=== PATIENT | female | born 1960 ===

== ENCOUNTER 2017-01-29 18:46 | Inpatient (IN) | payer SELFPAY ==
[2017-01-29] MEDS ORDERED: ZOFRAN IV ONE ×2 (19:15→21:02)
[2017-01-29] MEDS ORDERED: NITRO-BID 2% TP ONE (19:15)
[2017-01-29] MEDS ORDERED: MORPHINE IV ONE (19:15)
[2017-01-29] MEDS ORDERED: ASPIRIN PO ONE (19:16)
--- NOTE | 2017-01-29 19:18 | Admit Criteria Form ---
Admission Criteria Documentation: CHEST PAIN Clinical Indications for Admission to Inpatient Care (Place 'X' for any and all applicable criteria): Admission is indicated for chest pain and ANY ONE of the following(1)(2)(3)(4)(5 ): [ ]I. Angina with acute coronary syndrome (Also use Myocardial Infarction or Angina guideline) [ ]II. Hemodynamic instability [ ]III. Angina needing acute intervention as indicated by ALL of the following( 11)(12): [ ]a) Unstable angina is present as indicated by angina that is ANY ONE of the following: [ ]i) New onset [ ]ii) Nocturnal [ ]iii) Prolonged at rest [ ]iv) Progressive [ ]b) Angina warrants acute intervention as indicated by ANY ONE of the following: [ ]i) Recurrent angina (e.g, not responding as previously to treatment) [ ]ii) Angina at rest or with low-level activities despite initial medical therapy [ ]iii) New or presumably new ST-segment depression on ECG [ ]iv) Signs or symptoms of heart failure (eg, dyspnea, pulmonary edema) [ ]v) New or worsening mitral regurgitation [ ]vi) Hemodynamic instability [ ]vii) Dangerous arrhythmia (eg, sustained ventricular tachycardia) [ ]viii) History of percutaneous coronary intervention within 6 months [ ]ix) History of coronary artery bypass graft surgery [ ]x) RADHA risk score of 2 or greater[A] [ ]xi) History of Diabetes(14) [ ]xii) High-risk cardiac ischemia findings on noninvasive testing (e.g, echocardiogram, treadmill testing, nuclear scan) [ ]xiii) Chronic renal insufficiency (ie, estimated GFR less than 60 mL/min/1.732m) [ ]xiv) Left ventricular ejection fraction less than 40% [ ]IV. Evidence of ND (eg, cardiac biomarkers positive, ST-segment elevation on ECG) also use Myocardial Infarction Criteria Form. [ ]V. Pulmonary edema [ ]. Respiratory distress [ ]VII. Chest pain indicative of serious diagnosis other than coronary artery disease (eg, aortic dissection) [ ]VIII. Contraindications and/or Inappropriate clinical situations for Observational Care in patients with Chest Pain, when ANY ONE of the following is required: [ ]a) Patient with risk factor for pulmonary embolism, acute coronary syndrome and myocardial infarction (18) [ ]b) Patient with Pulmonary embolism require an average LOS of 4.3 days, therefore emergency department observation management is inappropriate 18,23 [ ]c) Painful condition/s in the elderly, have the highest rate of recidivism after emergency department observation management (10.8%) 20,21,22 [ ]d) Elevated cardiac biomarker requires intensive and exhaustive care (19) [X ]IX. General contraindications and/or Inappropriate clinical situations for Observational Care in patients with Chest Pain, when ANY ONE of the following is required: [X ]a) Prediction of prolongation of LOS based on ANY ONE of the following may be considered as a contraindication for observational care 2, 3, 4, 5, 6, 7, 8, 9, 10, 11 [ ]i) Age > 65 yrs. [X ]ii) Patient arriving by ambulance [ ]iii) Patient with high acuity [ ]iv) Patient requiring vital sign monitoring [ ]v) Patient on IV medication [ ]b) Systolic blood pressures 180mmHg 3,12 [ ]c) Patient with altered mental status including delirium and other alteration of consciousness, (3) [ ]d) Patient whose discharge disposition will be to a usp home or rehabilitation home should not be managed in Emergency Department Observation Unit. CMS rule requires 3 days hospital stay before such placement. 3,13 [ ]e) Patient with failure to thrive due to broad array of etiologies 3,16,17 [ ]f) Inability to ambulate 3,14 Extended stay beyond goal length of stay may be needed for (1)(28): [ ]a) Specific condition diagnosed after evaluation (eg, pulmonary embolism, aortic dissection) [ ]b) Unstable angina [ ]c) Continued suspicion of acute coronary syndrome with inability to complete needed cardiac evaluation (eg, patient clinically unable to undergo stress testing) [ ]d) Myocardial infarction (Contents from ANGINA and CHEST PAIN clinical indications for admission to inpatient care have been integrated in this form) The original [facility] content created by [employer] has been revised. The portions of the content which have been revised are identified through the use of italic text or in bold, and [facility] [employer] has neither reviewed nor approved the modified material. All other unmodified content is copyright [facility]. Please see references footnoted in the original [facility] [employer] edition 2016 Admission Criteria Met: Yes
--- NOTE | 2017-01-29 19:20 | Emergency Department Report ---
HPI - General Chief Complaint: Chest Pain Time Seen by Provider: 01/29/17 19:05 - [facility] HPI: Room 4 The patient is a 56-year-old female presenting with a chief complaint of chest pain. Family states patient developed substernal left-sided chest pain at approximately 18:10. Patient describes the pain as feeling as though someone is sitting on her chest. Family states patient lost consciousness for a few seconds. Patient was diaphoretic complained of shortness of breath and did vomit. The patient currently gives her pain a score of 6-7/10. The patient states she's never had a stress test or cardiac catheterization Location: Chest Duration: Constant Since 18:10 Quality: Pressure Severity:6-7/10 Modifying factors: [see above] Context: [see above] Mode of transportation: [not driving] ED Past Medical Hx - Past Medical History Hx Hypertension: Yes Hx Diabetes: Yes - Surgical History Hx Cholecystectomy: Yes - Family History Family history: no significant - Social History Smoking Status: Never Smoker Substance Use Type: None ED Review of Systems ROS: Stated complaint: CHEST PAIN Other details as noted in HPI Comment: All other systems reviewed and negative Constitutional: diaphoresis. denies: chills, fever Eyes: denies: eye pain, eye discharge, vision change ENT: denies: ear pain, throat pain Respiratory: shortness of breath Cardiovascular: chest pain Endocrine: no symptoms reported Gastrointestinal: nausea, vomiting Genitourinary: denies: urgency, dysuria, discharge Musculoskeletal: denies: back pain, joint swelling, arthralgia Skin: denies: rash, lesions Neurological: paresthesias, other (syncope) Psychiatric: denies: anxiety, depression Hematological/Lymphatic: denies: easy bleeding, easy bruising Physical Exam - Physical Exam Physical Exam: GENERAL: The patient is well-developed well-nourished female lying on stretcher not appearing to be in acute distress. [] HEENT: Normocephalic. Atraumatic. Extraocular motions are intact. Patient has moist mucous membranes. NECK: Supple. Trachea midline CHEST/LUNGS: Clear to auscultation. There is no respiratory distress noted. HEART/CARDIOVASCULAR: Regular. There is no tachycardia. There is no gallop rub or murmur. ABDOMEN: Abdomen is soft, nontender. Patient has normal bowel sounds. There is no abdominal distention. SKIN: There is no rash. There is no edema. There is no diaphoresis. NEURO: The patient is awake, alert, and oriented. The patient is cooperative. The patient has no focal neurologic deficits. The patient has normal speech. Cranial nerves II through XII grossly intact, no drift MUSCULOSKELETAL: There is no evidence of acute injury. ED Medical Decision Making - Lab Data Result diagrams: 01/29/17 19:33 01/29/17 19:41 Laboratory Tests 01/29/17 01/29/17 01/29/17 19:33 19:39 19:40 WBC 7.2 RBC 4.01 Hgb 11.4 Hct 34.2 MCV 85 MCH 28 MCHC 33 RDW 13.8 Plt Count 189 Lymph % (Auto) 45.2 H Rankin % (Auto) 4.9 Eos % (Auto) 2.0 Baso % (Auto) 0.6 Lymph # 3.2 Rankin # 0.4 Eos # 0.1 Baso # 0.0 Seg Neutrophils % 47.3 Seg Neutrophils # 3.4 PT 11.6 L INR 0.86 L APTT 23.1 L D-Dimer 241.45 H Sodium Potassium Chloride Carbon Dioxide Anion Gap BUN Creatinine Estimated GFR BUN/Creatinine Ratio Glucose Calcium Total Creatine Kinase 104 CK-MB (CK-2) 1.9 CK-MB (CK-2) Rel Index 1.8 Troponin T 01/29/17 19:41 WBC RBC Hgb Hct MCV MCH MCHC RDW Plt Count Lymph % (Auto) Rankin % (Auto) Eos % (Auto) Baso % (Auto) Lymph # Rankin # Eos # Baso # Seg Neutrophils % Seg Neutrophils # PT INR APTT D-Dimer Sodium 136 L Potassium 4.2 Chloride 102.3 Carbon Dioxide 21 L Anion Gap 17 BUN 26 H Creatinine 0.7 Estimated GFR > 60 BUN/Creatinine Ratio 37.14 Glucose 187 H Calcium 9.3 Total Creatine Kinase CK-MB (CK-2) CK-MB (CK-2) Rel Index Troponin T < 0.010 - EKG Data -: EKG Interpreted by Me EKG shows normal: sinus rhythm Rate: normal - EKG Data When compared to previous EKG there are: previous EKG unavailable Interpretation: other (no ischemic changes seen) - Radiology Data Radiology results: image reviewed (chest x-ray) interpreted by me: Chest x-ray-no focal infiltrates, no pneumothorax - Differential Diagnosis ACS, GERD, pericarditis, PE, pneumothorax Critical care attestation.: If time is entered above; I have spent that time in minutes in the direct care of this critically ill patient, excluding procedure time. ED Disposition Clinical Impression: Chest pain Disposition: OP ADMITTED IP TO THIS HOSP Is pt being admited?: Yes Does the pt Need Aspirin: Yes Condition: Fair Instructions: Chest Pain (ED) Time of Disposition: 20:39 (hospitalist paged)
[2017-01-29 19:48] LABS: Basophils % (Auto) 0.6 % (0.0-1.8); Hematocrit 34.2 % (30.3-42.9); Hemoglobin 11.4 gm/dl (10.1-14.3); Mean Corpuscular HGB Conc 33 % (30-34); Mean Corpuscular Hemoglobin 28 pg (28-32); Mean Corpuscular Volume 85 fl (79-97); Platelet Count 189 K/mm3 (140-440); Red Blood Count 4.01 M/mm3 (3.65-5.03); Red Cell Distribution Width 13.8 % (13.2-15.2); White Blood Count 7.2 K/mm3 (4.5-11.0)
[2017-01-29 19:58] LABS: INR 0.86 (0.87-1.13)
[2017-01-29 19:59] LABS: Partial Thromboplastin Time 23.1 Sec. (24.2-36.6)
[2017-01-29 20:10] LABS: Anion Gap 17 mmol/L; BUN/Creatinine Ratio 37.14; Blood Urea Nitrogen 26 mg/dL (7-17); Calcium 9.3 mg/dL (8.4-10.2); Carbon Dioxide 21 mmol/L (22-30); Chloride 102.3 mmol/L (98-107); Glucose 187 mg/dL (65-100); Potassium 4.2 mmol/L (3.6-5.0); Sodium 136 mmol/L (137-145)
[2017-01-29 20:12] LABS: Creatine Kinase MB 1.9 ng/mL (0.0-4.0)
[2017-01-29] MEDS ORDERED: TYLENOL PO PRN (21:09)
[2017-01-29] MEDS ORDERED: DULCOLAX PR PRN (21:09)
[2017-01-29] MEDS ORDERED: MILK OF MAGNESIA PO PRN (21:09)
[2017-01-29] MEDS ORDERED: MORPHINE IV PRN (21:09)
[2017-01-29] MEDS ORDERED: D50W (25GM) IV PRN (21:09)
[2017-01-29] MEDS ORDERED: SODIUM CHLORIDE FLUSH SYRINGE 10 ML IV PRN (21:09)
--- NOTE | 2017-01-29 21:18 | History and Physical Report ---
History of Present Illness Date of examination: 01/29/17 History of present illness: 56-year-old woman with a history of hypertension, diabetes comes emergency room with complaints of chest pain across the chest. Symptoms started today, he felt as if someone was sitting on her chest, constant, intensity 8/10, no radiation, she cannot identify exacerbating or relieving factors. She admits to nausea vomiting, shortness breath, diaphoresis and palpitation. Family stated that she had a syncopal episode, unclear how long Patient denies cough, abdominal pain, hematochezia, dysuria, frequency, focal weakness, dysarthria, fever chills, polydipsia polyuria, hot or cold intolerance , easy bruisability, or rash or bleeding from mucosal membrane, rhinorrhea, epistaxis, earache, tinnitus, blurry vision, eye discharge, anxiety, depression. Other review of systems negative PAST SURGICAL HISTORY: Cholecystectomy SOCIAL HISTORY: Denies alcohol, tobacco, drugs FAMILY HISTORY: Hypertension Medications and Allergies Allergies Allergy/AdvReac Type Severity Reaction Status Date / Time No Known Allergies Allergy Verified 01/29/17 21:24 Home Medications Medication Instructions Recorded Confirmed Last Taken Type Aspirin [Aspirin TAB] 325 mg PO QDAY 01/30/17 01/30/17 Unknown History Linagliptin [Tradjenta] 5 mg PO DAILY 01/30/17 01/30/17 Unknown History Lisinopril/Hydrochlorothiazide 1 tab PO QDAY 01/30/17 01/30/17 Unknown History [Zestoretic 20-25 mg] Metformin HCl [Glucophage] 1,000 mg PO BID 01/30/17 01/30/17 Unknown History Active Meds: Active Medications Acetaminophen (Tylenol) 650 mg PO Q4H PRN PRN Reason: Pain MILD(1-3)/Fever >100.5/OJEDA Aspirin (Baby Aspirin) 81 mg PO QDAY BRODIE Bisacodyl (Dulcolax) 10 mg IN QDAY PRN PRN Reason: Constipation unrelieved by MOM Dextrose (D50w (25gm)) 50 ml IV PRN PRN PRN Reason: Hypoglycemia Enoxaparin Sodium (Lovenox) 30 mg SUB-Q QDAY [facility] Sodium Chloride (Nacl 0.45% 1000 Ml) 1,000 mls @ 75 mls/hr IV DIRECT BRODIE Insulin Aspart (Novolog) 0 units SUB-Q ACHS BRODIE PRN Reason: Protocol Magnesium Hydroxide (Milk Of Magnesia) 30 ml PO Q4H PRN PRN Reason: Constipation Morphine Sulfate (Morphine) 2 mg IV Q4H PRN PRN Reason: Pain, Moderate (4-6) Ondansetron HCl (Zofran) 4 mg IV Q4H PRN PRN Reason: N/V unrelieved by Reglan Sodium Chloride (Sodium Chloride Flush Syringe 10 Ml) 10 ml IV PRN PRN PRN Reason: LINE FLUSH Exam - Physical Exam Narrative exam: Gen. appearance: Patient lying in bed, no apparent distress HEENT: Normocephalic, atraumatic, pupils equally round and reactive to light, extraocular movement intact, and no sclericterus,. No JVD or thyromegaly or nodule,neck supple, no carotid bruit ,mucous membranes moist, no exudate or erythema Heart: S1, S2, regular rate and rhythm Lungs: Clear to auscultation bilaterally, breathing comfortable Abdomen: Positive bowel sounds, nontender, nondistended, no organomegaly Extremity: No edema, cyanosis, clubbing Skin: No rash, nodules, warm, dry Neuro: Oriented 3, cranial nerves II-12 intact, speech is fluent, motor and sensory intact Results - Labs CBC & Chem 7: 01/30/17 03:09 02/01/17 04:50 Labs: Abnormal lab results 01/29/17 01/29/17 01/29/17 Range/Units 19:33 19:40 19:41 Lymph % (Auto) 45.2 H (13.4-35.0) % PT 11.6 L (12.2-14.9) Sec. INR 0.86 L (0.87-1.13) APTT 23.1 L (24.2-36.6) Sec. D-Dimer 241.45 H (0-234) ng/mlDDU Sodium 136 L (137-145) mmol/L Carbon Dioxide 21 L (22-30) mmol/L BUN 26 H (7-17) mg/dL Glucose 187 H (65-100) mg/dL - Imaging and Cardiology EKG: image reviewed Chest x-ray: image reviewed Assessment and Plan Chest pain and abnormal EKG, rule out ACS Hypertension Diabetes type 2 Admit to medicine Check cardiac enzymes, lipid profile, obtain stress test Check CT chest Start aspirin, IV morphine, DVT prophylaxis Check fingersticks and initiate insulin sliding scale
[2017-01-29] MEDS ORDERED: NACL ONE (21:51)
[2017-01-29] MEDS ORDERED: ZOFRAN ONE (23:24)
[2017-01-29] MEDS ORDERED: NOVOLOG SUB-Q ONE (23:28)
[2017-01-29] MEDS: NOVOLOG SUB-Q SCH (23:34)
[2017-01-29] MEDS: ZOFRAN IV PRN (23:39)
--- NOTE | 2017-01-30 00:38 | Cat Scan Report ---
FINAL REPORT EXAM: CT ANGIO CHEST HISTORY: chest pain sob TECHNIQUE: Serial axial images through the chest during intravenous administration of 100 milliliters Omnipaque 350 contrast with coronal, sagittal and oblique reconstruction PRIORS: None. FINDINGS: There is atelectasis in the lung bases. No pleural effusion is seen. Multiple pneumatoceles are seen bilaterally. There is fluid in the distal esophagus. The heart measures approximately 12 centimeters in length. No mediastinal adenopathy is identified. No abnormal filling defects are identified in the pulmonary arteries. There is fatty infiltration of the liver. No acute osseous abnormality is identified. IMPRESSION: 1. No definite acute pulmonary embolism is identified. 2. There is fluid in the lumen of the distal esophagus which may indicate reflux. 3. Multiple pneumatoceles are noted. 4. There is atelectasis in the dependent portion of the lungs, bilaterally. Possibility of superimposed infection is not excluded.
[2017-01-30] MEDS: NACL 0.45% 1000 ML 1,000 ML IV SCH ×2 (00:47→23:05)
[2017-01-30 01:08] LABS: Creatine Kinase MB 1.6 ng/mL (0.0-4.0)
[2017-01-30 03:22] LABS: Basophils % (Auto) 0.3 % (0.0-1.8); Eosinophils % (Auto) 0.1 % (0.0-4.3); Hematocrit 31.9 % (30.3-42.9); Hemoglobin 10.5 gm/dl (10.1-14.3); Mean Corpuscular HGB Conc 33 % (30-34); Mean Corpuscular Hemoglobin 28 pg (28-32); Mean Corpuscular Volume 85 fl (79-97); Platelet Count 182 K/mm3 (140-440); Red Blood Count 3.75 M/mm3 (3.65-5.03); Red Cell Distribution Width 13.7 % (13.2-15.2); White Blood Count 9.3 K/mm3 (4.5-11.0)
[2017-01-30 03:41] LABS: Anion Gap 17 mmol/L; BUN/Creatinine Ratio 35.71; Blood Urea Nitrogen 25 mg/dL (7-17); Calcium 9.1 mg/dL (8.4-10.2); Carbon Dioxide 21 mmol/L (22-30); Glucose 235 mg/dL (65-100); Potassium 4.9 mmol/L (3.6-5.0); Sodium 132 mmol/L (137-145)
[2017-01-30] MEDS: ZOFRAN IV PRN ×2 (04:23→17:43)
[2017-01-30 06:30] LABS: Creatine Kinase MB 1.3 ng/mL (0.0-4.0)
[2017-01-30] MEDS: NOVOLOG SUB-Q SCH ×4 (08:33→23:04)
[2017-01-30] MEDS: BABY ASPIRIN PO SCH (09:28)
[2017-01-30] MEDS: LOVENOX SUB-Q SCH (09:57)
[2017-01-30] MEDS ORDERED: LOVENOX SUB-Q SCH (10:00)
--- NOTE | 2017-01-30 21:31 | Progress Note ---
History Interval history: c/o nausea and vomiting refused stress test this morning Hospitalist Physical - Constitutional Vitals: Temp Pulse Resp BP Pulse Ox 97.6 F 86 20 118/56 99 01/30/17 21:00 01/30/17 21:00 01/30/17 21:00 01/30/17 21:00 01/30/17 21:00 Results - Labs CBC & Chem 7: 01/30/17 03:09 01/30/17 03:09 Labs: Laboratory Last Values WBC 9.3 K/mm3 (4.5-11.0) 01/30/17 03:09 RBC 3.75 M/mm3 (3.65-5.03) 01/30/17 03:09 Hgb 10.5 gm/dl (10.1-14.3) 01/30/17 03:09 Hct 31.9 % (30.3-42.9) 01/30/17 03:09 MCV 85 fl (79-97) 01/30/17 03:09 MCH 28 pg (28-32) 01/30/17 03:09 MCHC 33 % (30-34) 01/30/17 03:09 RDW 13.7 % (13.2-15.2) 01/30/17 03:09 Plt Count 182 K/mm3 (140-440) 01/30/17 03:09 Lymph % (Auto) 22.9 % (13.4-35.0) 01/30/17 03:09 [place] % (Auto) 3.0 % (0.0-7.3) 01/30/17 03:09 Eos % (Auto) 0.1 % (0.0-4.3) 01/30/17 03:09 Baso % (Auto) 0.3 % (0.0-1.8) 01/30/17 03:09 Lymph # 2.1 K/mm3 (1.2-5.4) 01/30/17 03:09 [place] # 0.3 K/mm3 (0.0-0.8) 01/30/17 03:09 Eos # 0.0 K/mm3 (0.0-0.4) 01/30/17 03:09 Baso # 0.0 K/mm3 (0.0-0.1) 01/30/17 03:09 Seg Neutrophils % 73.7 % (40.0-70.0) H 01/30/17 03:09 Seg Neutrophils # 6.9 K/mm3 (1.8-7.7) 01/30/17 03:09 PT 11.6 Sec. (12.2-14.9) L 01/29/17 19:40 INR 0.86 (0.87-1.13) L 01/29/17 19:40 APTT 23.1 Sec. (24.2-36.6) L 01/29/17 19:40 D-Dimer 241.45 ng/mlDDU (0-234) H 01/29/17 19:40 Sodium 132 mmol/L (137-145) L 01/30/17 03:09 Potassium 4.9 mmol/L (3.6-5.0) 01/30/17 03:09 Chloride 99.0 mmol/L (98-107) 01/30/17 03:09 Carbon Dioxide 21 mmol/L (22-30) L 01/30/17 03:09 Anion Gap 17 mmol/L 01/30/17 03:09 BUN 25 mg/dL (7-17) H 01/30/17 03:09 Creatinine 0.7 mg/dL (0.7-1.2) 01/30/17 03:09 Estimated GFR > 60 ml/min 01/30/17 03:09 BUN/Creatinine Ratio 35.71 % 01/30/17 03:09 Glucose 235 mg/dL (65-100) H 01/30/17 03:09 POC Glucose 191 (70-105) H 01/30/17 15:53 Calcium 9.1 mg/dL (8.4-10.2) 01/30/17 03:09 Total Creatine Kinase 69 units/L (30-135) 01/30/17 04:57 CK-MB (CK-2) 1.3 ng/mL (0.0-4.0) 01/30/17 04:57 CK-MB (CK-2) Rel Index 1.8 (0-4) 01/30/17 04:57 Troponin T < 0.010 ng/mL (0.00-0.029) 01/30/17 08:49 Triglycerides 289 mg/dL (2-149) H 01/29/17 19:39 Cholesterol 254 mg/dL (50-199) H 01/29/17 19:39 LDL Cholesterol Direct 146 mg/dL (50-130) H 01/29/17 19:39 HDL Cholesterol 51 mg/dL (40-59) 01/29/17 19:39 Cholesterol/HDL Ratio 4.98 % 01/29/17 19:39
[2017-01-31] MEDS: ZOFRAN IV PRN (05:40)
[2017-01-31 06:02] LABS: Chloride 100.5 mmol/L (98-107); Potassium 3.9 mmol/L (3.6-5.0)
[2017-01-31 06:08] LABS: Bacteria,Urine 1+ /HPF (Negative); Bilirubin,Urine NEG (Negative); Blood,Urine SM (Negative); Ketones,Urine NEG (Negative); Leukocyte Esterase,Urine MOD (Negative); Mucus,Urine FEW /HPF; Nitrite,Urine NEG (Negative); Urobilinogen,Urine < 2.0 mg/dL (<2.0)
[2017-01-31] MEDS ORDERED: NACL 0.9% 1000 ML 1,000 ML IV ONE (10:00)
[2017-01-31] MEDS: NOVOLOG SUB-Q SCH ×4 (10:09→22:49)
[2017-01-31] MEDS: LOVENOX SUB-Q SCH (10:09)
[2017-01-31] MEDS: BABY ASPIRIN PO SCH (10:10)
--- NOTE | 2017-01-31 19:09 | Progress Note ---
Assessment and Plan Assessment and plan: 1. Gastroparesis with nausea/vomiting 2. Dehydration 3. Acute kidney injury 4. Uncontrolled DM History Interval history: continues to be nauseated and to throw up; family not present to translate Hospitalist Physical - Constitutional Vitals: Temp Pulse Resp BP Pulse Ox 97.2 F L 82 18 184/89 99 01/31/17 17:20 01/31/17 17:20 01/31/17 17:20 01/31/17 17:20 01/31/17 17:20 General appearance: Present: mild distress, well-nourished - EENT Eyes: Present: PERRL, EOM intact. Absent: scleral icterus, conjunctival injection - Neck Neck: Present: supple, normal ROM. Absent: masses or JVD - Respiratory Respiratory effort: normal Respiratory: bilateral: CTA, negative: rales, rhonchi, wheezing - Cardiovascular Rhythm: regular Heart Sounds: Present: S1 & S2. Absent: systolic murmur - Extremities Extremities: no ischemia - Abdominal General gastrointestinal: soft, tender, non-distended, normal bowel sounds Localized gastrointestinal: tender: epigastric periumbilical - Integumentary Integumentary: Present: warm, dry. Absent: jaundice, rash - Neurologic Neurologic: no focal deficits Results - Labs CBC & Chem 7: 01/30/17 03:09 01/31/17 04:38 Labs: Laboratory Last Values WBC 9.3 K/mm3 (4.5-11.0) 01/30/17 03:09 RBC 3.75 M/mm3 (3.65-5.03) 01/30/17 03:09 Hgb 10.5 gm/dl (10.1-14.3) 01/30/17 03:09 Hct 31.9 % (30.3-42.9) 01/30/17 03:09 MCV 85 fl (79-97) 01/30/17 03:09 MCH 28 pg (28-32) 01/30/17 03:09 MCHC 33 % (30-34) 01/30/17 03:09 RDW 13.7 % (13.2-15.2) 01/30/17 03:09 Plt Count 182 K/mm3 (140-440) 01/30/17 03:09 Lymph % (Auto) 22.9 % (13.4-35.0) 01/30/17 03:09 [place] % (Auto) 3.0 % (0.0-7.3) 01/30/17 03:09 Eos % (Auto) 0.1 % (0.0-4.3) 01/30/17 03:09 Baso % (Auto) 0.3 % (0.0-1.8) 01/30/17 03:09 Lymph # 2.1 K/mm3 (1.2-5.4) 01/30/17 03:09 [place] # 0.3 K/mm3 (0.0-0.8) 01/30/17 03:09 Eos # 0.0 K/mm3 (0.0-0.4) 01/30/17 03:09 Baso # 0.0 K/mm3 (0.0-0.1) 01/30/17 03:09 Seg Neutrophils % 73.7 % (40.0-70.0) H 01/30/17 03:09 Seg Neutrophils # 6.9 K/mm3 (1.8-7.7) 01/30/17 03:09 PT 11.6 Sec. (12.2-14.9) L 01/29/17 19:40 INR 0.86 (0.87-1.13) L 01/29/17 19:40 APTT 23.1 Sec. (24.2-36.6) L 01/29/17 19:40 D-Dimer 241.45 ng/mlDDU (0-234) H 01/29/17 19:40 Sodium 140 mmol/L (137-145) D 01/31/17 04:38 Potassium 3.9 mmol/L (3.6-5.0) D 01/31/17 04:38 Chloride 99.0 mmol/L (98-107) 01/30/17 03:09 Carbon Dioxide 24 mmol/L (22-30) 01/31/17 04:38 Anion Gap 17 mmol/L 01/30/17 03:09 BUN 29 mg/dL (7-17) H 01/31/17 04:38 Creatinine 1.0 mg/dL (0.7-1.2) 01/31/17 04:38 Estimated GFR 58 ml/min 01/31/17 04:38 BUN/Creatinine Ratio 29.00 % 01/31/17 04:38 Glucose 127 mg/dL (65-100) H 01/31/17 04:38 POC Glucose 155 (70-105) H 01/31/17 11:41 Calcium 9.0 mg/dL (8.4-10.2) 01/31/17 04:38 Total Creatine Kinase 69 units/L (30-135) 01/30/17 04:57 CK-MB (CK-2) 1.3 ng/mL (0.0-4.0) 01/30/17 04:57 CK-MB (CK-2) Rel Index 1.8 (0-4) 01/30/17 04:57 Troponin T < 0.010 ng/mL (0.00-0.029) 01/30/17 08:49 Triglycerides 289 mg/dL (2-149) H 01/29/17 19:39 Cholesterol 254 mg/dL (50-199) H 01/29/17 19:39 LDL Cholesterol Direct 146 mg/dL (50-130) H 01/29/17 19:39 HDL Cholesterol 51 mg/dL (40-59) 01/29/17 19:39 Cholesterol/HDL Ratio 4.98 % 01/29/17 19:39 Urine Color Yellow (Yellow) 01/31/17 05:45 Urine Turbidity Clear (Clear) 01/31/17 05:45 Urine pH 5.0 (5.0-7.0) 01/31/17 05:45 Ur Specific [place] 1.015 (1.003-1.030) 01/31/17 05:45 Urine Protein 100 mg/dl mg/dL (Negative) 01/31/17 05:45 Urine Glucose (UA) >=500 mg/dL (Negative) 01/31/17 05:45 Urine Ketones Neg mg/dL (Negative) 01/31/17 05:45 Urine Blood Sm (Negative) 01/31/17 05:45 Urine Nitrite Neg (Negative) 01/31/17 05:45 Urine Bilirubin Neg (Negative) 01/31/17 05:45 Urine Urobilinogen < 2.0 mg/dL (<2.0) 01/31/17 05:45 Ur Leukocyte Esterase Mod (Negative) 01/31/17 05:45 Urine WBC (Auto) 10.0 /HPF (0.0-6.0) H 01/31/17 05:45 Urine RBC (Auto) 2.0 /HPF (0.0-6.0) 01/31/17 05:45 U Epithel Cells (Auto) 3.0 /HPF (0-13.0) 01/31/17 05:45 Urine Bacteria (Auto) 1+ /HPF (Negative) 01/31/17 05:45 Hyaline Casts 2 /LPF 01/31/17 05:45 Urine Mucus Few /HPF 01/31/17 05:45
[2017-02-01 06:44] LABS: Anion Gap 19 mmol/L; Blood Urea Nitrogen 7 mg/dL (7-17); Calcium 8.5 mg/dL (8.4-10.2); Carbon Dioxide 18 mmol/L (22-30); Chloride 94.7 mmol/L (98-107); Glucose 154 mg/dL (65-100); Potassium 3.9 mmol/L (3.6-5.0); Sodium 128 mmol/L (137-145)
[2017-02-01] MEDS: NOVOLOG SUB-Q SCH ×4 (09:15→22:25)
[2017-02-01] MEDS: BABY ASPIRIN PO SCH (09:15)
[2017-02-01] MEDS: LOVENOX SUB-Q SCH (09:15)
--- NOTE | 2017-02-01 19:42 | Progress Note ---
Assessment and Plan Assessment and plan: 1. Gastroparesis with nausea/vomiting On ivf and antiemetics Improving clinically, started on clear liquid diet; plan to advance it if tolerated 2. Dehydration Resolved with IV fluids 3. Acute kidney injury Resolved with IV fluids 5. Hyponatremia Likely delusional Monitor 4. Uncontrolled DM Hemoglobin A1c 11.9 Home only on oral antidiabetics Discussed with patient and family need of insulin therapy; they agreed; will start insulin 70/30 along with Accu-Cheks and SSI; assessing insulin requirements; 5. Hypertension BP elevated Now that she is tolerating by mouth, will resume lisinopril and HCTZ Monitor BP and adjust regimen as needed 6. DVT prophylaxis Lovenox 7. Discharge planning issues Nurse asked to teach patient how to self administer subcutaneous insulin Case management are contacted for PCP referral History Interval history: started on clear liquid diet; still nauseated, but feeling better family member present, translating Hospitalist Physical - Constitutional Vitals: Temp Pulse Resp BP Pulse Ox 98.3 F 83 20 164/79 96 02/01/17 16:00 02/01/17 16:00 02/01/17 16:00 02/01/17 16:00 02/01/17 16:00 General appearance: Present: no acute distress, well-nourished - EENT Eyes: Present: PERRL, EOM intact. Absent: scleral icterus, conjunctival injection - Neck Neck: Present: supple, normal ROM. Absent: masses or JVD - Respiratory Respiratory effort: normal Respiratory: bilateral: CTA, negative: rales, rhonchi, wheezing - Cardiovascular Rhythm: regular Heart Sounds: Present: S1 & S2. Absent: systolic murmur - Extremities Extremities: no ischemia - Abdominal General gastrointestinal: soft, tender, non-distended, normal bowel sounds Localized gastrointestinal: tender: epigastric periumbilical - Integumentary Integumentary: Present: warm, dry. Absent: jaundice, rash - Psychiatric Psychiatric: cooperative - Neurologic Neurologic: CNII-XII intact, no focal deficits Results - Labs CBC & Chem 7: 01/30/17 03:09 02/01/17 04:50 Labs: Laboratory Last Values WBC 9.3 K/mm3 (4.5-11.0) 01/30/17 03:09 RBC 3.75 M/mm3 (3.65-5.03) 01/30/17 03:09 Hgb 10.5 gm/dl (10.1-14.3) 01/30/17 03:09 Hct 31.9 % (30.3-42.9) 01/30/17 03:09 MCV 85 fl (79-97) 01/30/17 03:09 MCH 28 pg (28-32) 01/30/17 03:09 MCHC 33 % (30-34) 01/30/17 03:09 RDW 13.7 % (13.2-15.2) 01/30/17 03:09 Plt Count 182 K/mm3 (140-440) 01/30/17 03:09 Lymph % (Auto) 22.9 % (13.4-35.0) 01/30/17 03:09 [place] % (Auto) 3.0 % (0.0-7.3) 01/30/17 03:09 Eos % (Auto) 0.1 % (0.0-4.3) 01/30/17 03:09 Baso % (Auto) 0.3 % (0.0-1.8) 01/30/17 03:09 Lymph # 2.1 K/mm3 (1.2-5.4) 01/30/17 03:09 [place] # 0.3 K/mm3 (0.0-0.8) 01/30/17 03:09 Eos # 0.0 K/mm3 (0.0-0.4) 01/30/17 03:09 Baso # 0.0 K/mm3 (0.0-0.1) 01/30/17 03:09 Seg Neutrophils % 73.7 % (40.0-70.0) H 01/30/17 03:09 Seg Neutrophils # 6.9 K/mm3 (1.8-7.7) 01/30/17 03:09 PT 11.6 Sec. (12.2-14.9) L 01/29/17 19:40 INR 0.86 (0.87-1.13) L 01/29/17 19:40 APTT 23.1 Sec. (24.2-36.6) L 01/29/17 19:40 D-Dimer 241.45 ng/mlDDU (0-234) H 01/29/17 19:40 Sodium 128 mmol/L (137-145) L D 02/01/17 04:50 Potassium 3.9 mmol/L (3.6-5.0) 02/01/17 04:50 Chloride 94.7 mmol/L (98-107) L 02/01/17 04:50 Carbon Dioxide 18 mmol/L (22-30) L 02/01/17 04:50 Anion Gap 19 mmol/L 02/01/17 04:50 BUN 7 mg/dL (7-17) 02/01/17 04:50 Creatinine 0.2 mg/dL (0.7-1.2) L D 02/01/17 04:50 Estimated GFR > 60 ml/min 02/01/17 04:50 BUN/Creatinine Ratio 35.00 % 02/01/17 04:50 Glucose 154 mg/dL (65-100) H 02/01/17 04:50 POC Glucose 159 (70-105) H 02/01/17 12:18 Hemoglobin A1c 11.9 % (4-6) H 02/01/17 04:50 Calcium 8.5 mg/dL (8.4-10.2) 02/01/17 04:50 Total Creatine Kinase 69 units/L (30-135) 01/30/17 04:57 CK-MB (CK-2) 1.3 ng/mL (0.0-4.0) 01/30/17 04:57 CK-MB (CK-2) Rel Index 1.8 (0-4) 01/30/17 04:57 Troponin T < 0.010 ng/mL (0.00-0.029) 01/30/17 08:49 Triglycerides 289 mg/dL (2-149) H 01/29/17 19:39 Cholesterol 254 mg/dL (50-199) H 01/29/17 19:39 LDL Cholesterol Direct 146 mg/dL (50-130) H 01/29/17 19:39 HDL Cholesterol 51 mg/dL (40-59) 01/29/17 19:39 Cholesterol/HDL Ratio 4.98 % 01/29/17 19:39 Urine Color Yellow (Yellow) 01/31/17 05:45 Urine Turbidity Clear (Clear) 01/31/17 05:45 Urine pH 5.0 (5.0-7.0) 01/31/17 05:45 Ur Specific [place] 1.015 (1.003-1.030) 01/31/17 05:45 Urine Protein 100 mg/dl mg/dL (Negative) 01/31/17 05:45 Urine Glucose (UA) >=500 mg/dL (Negative) 01/31/17 05:45 Urine Ketones Neg mg/dL (Negative) 01/31/17 05:45 Urine Blood Sm (Negative) 01/31/17 05:45 Urine Nitrite Neg (Negative) 01/31/17 05:45 Urine Bilirubin Neg (Negative) 01/31/17 05:45 Urine Urobilinogen < 2.0 mg/dL (<2.0) 01/31/17 05:45 Ur Leukocyte Esterase Mod (Negative) 01/31/17 05:45 Urine WBC (Auto) 10.0 /HPF (0.0-6.0) H 01/31/17 05:45 Urine RBC (Auto) 2.0 /HPF (0.0-6.0) 01/31/17 05:45 U Epithel Cells (Auto) 3.0 /HPF (0-13.0) 01/31/17 05:45 Urine Bacteria (Auto) 1+ /HPF (Negative) 01/31/17 05:45 Hyaline Casts 2 /LPF 01/31/17 05:45 Urine Mucus Few /HPF 01/31/17 05:45
[2017-02-01] MEDS: ZESTRIL PO SCH (22:25)
[2017-02-02 04:54] LABS: BUN/Creatinine Ratio 22.85; Blood Urea Nitrogen 16 mg/dL (7-17); Calcium 8.8 mg/dL (8.4-10.2); Carbon Dioxide 26 mmol/L (22-30); Chloride 99.9 mmol/L (98-107); Glucose 128 mg/dL (65-100); Potassium 3.7 mmol/L (3.6-5.0); Sodium 138 mmol/L (137-145)
[2017-02-02 05:00] LABS: Anion Gap 16 mmol/L
[2017-02-02 06:19] VITALS: BP 139/75
[2017-02-02] MEDS: ZESTRIL PO SCH (09:07)
[2017-02-02] MEDS: BABY ASPIRIN PO SCH (09:08)
[2017-02-02] MEDS: NOVOLOG SUB-Q SCH (09:08)
[2017-02-02] MEDS: LOVENOX SUB-Q SCH (09:08)
[2017-02-02] MEDS ORDERED: HCTZ PO SCH (10:00)
--- NOTE | 2017-02-02 11:03 | Discharge Summary ---
Providers - Providers Date of Admission: 01/29/17 21:09 Date of discharge: 02/02/17 Attending physician: DANIEL MELENDEZ Primary care physician: REWINDER OPERATOR Hospitalization Condition: Fair Disposition: DISCHARGED TO HOME OR SELFCARE Time spent for discharge: 35 min Exam - Constitutional Vitals: Temp Pulse Resp BP Pulse Ox 98.1 F 87 18 139/75 98 02/02/17 07:30 02/02/17 07:30 02/02/17 07:30 02/02/17 06:00 02/02/17 07:30 Plan Activity: advance as tolerated Diet: low cholesterol, low salt, diabetic Follow up with: [facility] [Outside] - 02/13/17 10:45 am PRIMARY CARE, [Primary Care Provider] - 3-5 Days Prescriptions: Aspirin [Aspirin BABY CHEW TAB] 81 mg PO QDAY #30 tab.chew Hydrochlorothiazide [HCTZ] 25 mg PO QDAY #30 tablet Insulin NPH/Regular [NovoLIN 70/30] 10 unit SUB-Q BIDDIAB #2 units Lisinopril [Zestril TAB] 20 mg PO QDAY #30 tablet Lovastatin [Altoprev] 40 mg PO QPM #30 tab.er.24h Metformin HCl [Glucophage] 1,000 mg PO BID #60 tablet Syringe & Needle,Insulin,1 ml [Insulin Syringe/Needle 1 ML] 1 each MC BID #60 disp.syrin
== END 2017-02-02 12:49 | disposition home or self-care (01) | DRG 392 ==
LOC: ED 18:46 → EDBD 21:09 → 4A 21:09
PROVIDERS: ADMIT Internal Medicine; ATTEND Internal Medicine
DX: K31.84 Gastroparesis (principal); N17.9 Acute kidney failure, unspecified; E87.1 Hypo-osmolality and hyponatremia; I10 Essential (primary) hypertension; E86.0 Dehydration; E11.65 Type 2 diabetes mellitus with hyperglycemia; Z90.49 Acquired absence of other specified parts of digestive tract; Z82.49 Family history of ischemic heart disease and other diseases of the circulatory system
CPT/HCPCS: 36415; 71010; 71275; 80048; 80061; 81001; 82550; 82553; 82962; 83036; 84484; 85025; 85379; 85610; 85730; 87086; 93005; 93010; 96374; 96375; 96376; J1650; J1815; J2270; J2405; J7030; Q9967